=== PATIENT | male | born 1950 | race Caucasian/White ===

== ENCOUNTER 2019-06-16 07:58 | Outpatient (CLI) | payer BC, MEDICARE ==
[2019-06-16] MEDS ORDERED: ASPI-515 PO (08:43)
[2019-06-16] MEDS ORDERED: LISI-167 PO (08:52)
[2019-06-16 09:10] LABS: BASOPHILS # (AUTO) 0.04 x10^3/uL (0-0.1); BASOPHILS % (AUTO) 1 % (0-1); EOSINOPHILS # (AUTO) 0.17 x10^3/uL (0-0.4); EOSINOPHILS % (AUTO) 3 % (1-7); LYMPHOCYTES # (AUTO) 1.16 x10^3/uL (1-3.4); LYMPHOCYTES % (AUTO) 22 % (22-44); MD NO; MEAN CORPUSCULAR HEMOGLOBIN 31.7 pg (27.5-34.5); MEAN CORPUSCULAR HGB CONC 33.1 g/dL (33.2-36.2); MEAN CORPUSCULAR VOLUME 95.8 fL (81-97); MEAN PLATELET VOLUME 8.2 fL (7.4-10.4); MONOCYTES # (AUTO) 0.37 x10^3/uL (0.2-0.8); MONOCYTES % (AUTO) 7 % (2-9); NEUTROPHILS # (AUTO) 3.45 x10^3/uL (1.8-6.8); NEUTROPHILS % (AUTO) 67 % (42-75); PLATELET COUNT 206 x10^3/uL (130-400); RED BLOOD COUNT 5.53 x10^6/uL (4.38-5.82); RED CELL DISTRIBUTION WIDTH 15.9 % (9.4-14.8)
[2019-06-16 09:21] LABS: ANION GAP 6 mmol/L (5-15); CALCIUM 9.1 mg/dL (8.5-10.1); CHLORIDE 107 mmol/L (98-107)
[2019-06-16 09:22] LABS: CREATININE 0.99 mg/dL (0.7-1.3)
== END 2019-06-16 23:59 | disposition home or self-care (01) ==
LOC: STAR 07:58
PROVIDERS: ATTEND Internal Medicine Cardiovascular Disease
DX: I10 Essential (primary) hypertension (principal); B18.2 Chronic viral hepatitis C
CPT/HCPCS: 36415; 80048; 85025

== ENCOUNTER 2019-06-20 08:36 | Day surgery (SDC) | payer BC, MEDICARE ==
[2019-06-16 08:34] VITALS: BP 161/88
[~2019-06-20] VITALS: Ht 188 cm; Wt 97.7 kg
[~2019-06-20 08:36] MED LIST: ASPI-515 PO; LISI-167 PO
[2019-06-20] MEDS ORDERED: NITROGLYCERIN 5 MG/ML, 10ML ONE (09:34)
[2019-06-20] MEDS ORDERED: LIDOCAINE 1%, 20ML ONE (09:34)
[2019-06-20] MEDS ORDERED: FENTANYL PF 100 MCG/2ML ONE ×2 (09:34→10:08)
[2019-06-20] MEDS ORDERED: MIDAZOLAM 1 MG/ML, 5ML ONE (09:34)
[2019-06-20] MEDS ORDERED: MIDAZOLAM 1 MG/ML, 2ML ONE (10:08)
== END 2019-06-20 12:50 | disposition home or self-care (01) ==
LOC: CACL 08:36
PROVIDERS: ATTEND Internal Medicine Cardiovascular Disease
DX: R94.39 Abnormal result of other cardiovascular function study (principal); I10 Essential (primary) hypertension; E78.5 Hyperlipidemia, unspecified; Z82.49 Family history of ischemic heart disease and other diseases of the circulatory system
CPT/HCPCS: 93458; 99156; C1760; C1769; C1894; J2250; J3010; Q9967